=== PATIENT | female | born 1980 | race Caucasian/White ===

== ENCOUNTER 2022-02-15 19:01 | Emergency (ER) | payer SELFPAY ==
[~2022-02-15] VITALS: Ht 157.5 cm; Wt 106.4 kg
[2022-02-15] MEDS ORDERED: PROAIR HFA0.09 MG/AC IH (19:12)
[2022-02-15] MEDS ORDERED: RT ADVAIR 128 DISKUS IH (19:12)
[2022-02-15 19:13] VITALS: BP 119/85; PULSE 94
[2022-02-15] MEDS ORDERED: BACTRIM DS 8001 TAB PO (20:47)
[2022-02-15] MEDS ORDERED: DIFLUCAN150 MG PO (20:48)
== END 2022-02-15 20:13 | disposition home or self-care (01) ==
LOC: COL.ER 19:01
DX: N76.4 Abscess of vulva (principal); E66.9 Obesity, unspecified; Z68.41 Body mass index [BMI] 40.0-44.9, adult